=== PATIENT | male | born 1965 | race Caucasian/White ===

== ENCOUNTER 2019-03-23 14:13 | Emergency (ER) | payer BC ==
[2019-03-23] MEDS ORDERED: Ketorolac 30 MG/ML SDV IVPUSH ONE (14:27)
[2019-03-23] MEDS ORDERED: Ondansetron 4 MG/2 ML SDV IVPUSH ONE (14:28)
[2019-03-23] MEDS ORDERED: HYDROmorphone 1 MG/ML Syringe IVPUSH ONE (14:29)
[2019-03-23] MEDS ORDERED: Sodium Chloride 0.9% 1,000 ML IV SCH (14:30)
--- NOTE | 2019-03-23 14:36 | EDM.PDOC ---
ED HPI GENERAL MEDICAL PROBLEM - General Chief Complaint: Flank Pain Stated Complaint: Right-sided flank pain Time Seen by Provider: 03/23/19 14:20 Source of Information: Reports: Patient History Limitations: Reports: No Limitations - History of Present Illness INITIAL COMMENTS - FREE TEXT/NARRATIVE: Patient states about 2 hours ago had a sharp sudden onset 10 out of 10 flank pain with nausea states pain has been steady and has not alleviated all no change with movement. He denies any vomiting abdominal pain fever or chills denies any history of renal stones but has a family history of stones with father. He denies taking any medication or any medical issues he has no other complaints Duration: Hour(s): Quality: Reports: Stabbing Severity: Severe Improves with: Reports: None Worsens with: Reports: None Associated Symptoms: Reports: Nausea/Vomiting Right Flank Pain Score (Numeric/FACES): 1 - Related Data Allergies Allergy/AdvReac Type Severity Reaction Status Date / Time No Known Allergies Allergy Verified 03/23/19 15:22 Home Meds: Home Meds . [No Known Home Meds] 03/23/19 [History] ED ROS GENERAL - Review of Systems Review Of Systems: See Below Constitutional: Reports: No Symptoms. Denies: Fever, Chills, Malaise, Weakness HEENT: Reports: No Symptoms Respiratory: Reports: No Symptoms Cardiovascular: Reports: No Symptoms Endocrine: Reports: No Symptoms. Denies: Fatigue, Polydypsia, Polyuria GI/Abdominal: Reports: Nausea. Denies: Abdominal Pain, Vomiting : Reports: Flank Pain. Denies: Discharge, Dysuria, Frequency, Pain, Urgency Musculoskeletal: Reports: No Symptoms Skin: Reports: No Symptoms Neurological: Reports: No Symptoms Psychiatric: Reports: No Symptoms Hematologic/Lymphatic: Reports: No Symptoms Immunologic: Reports: No Symptoms ED EXAM, RENAL/ - Physical Exam Exam: See Below Exam Limited By: No Limitations General Appearance: Alert, WD/WN, No Apparent Distress Ears: Normal External Exam, Normal Canal Nose: Normal Inspection, Normal Mucosa Throat/Mouth: Normal Inspection, Normal Lips, Normal Teeth, Normal Gums, Normal Oropharynx, Normal Voice, No Airway Compromise Neck: Normal Inspection, Full Range of Motion Respiratory/Chest: No Respiratory Distress, No Accessory Muscle Use Cardiovascular: Regular Rate, Rhythm, No Edema, No Gallop, No JVD, No Murmur, No Rub GI/Abdominal: Normal Bowel Sounds, Soft, Non-Tender, No Organomegaly, No Distention Back Exam: Normal Inspection, Full Range of Motion. No: CVA Tenderness (L), CVA Tenderness (R) Extremities: Normal Inspection, Normal Range of Motion, Non-Tender, No Pedal Edema, Normal Capillary Refill Neurological: Alert, Oriented, CN II-XII Intact, Normal Cognition, Normal Gait Psychiatric: Normal Affect, Normal Mood Skin Exam: Warm, Intact, Normal Color, No Rash Course - Vital Signs Text/Narrative:: BMP UA ordered CT abdomen and pelvis noncontrast for renal protocol was ordered 30 mg Toradol IV Zofran formula grams IV Dilaudid 0.5 mg IV ordered if no alleviation with Toradol CT scan 2.5 distal right ureteral calculus mild right hydronephrosis small nonobstructing calculi in both kidneys BMP within normal limits UA positive blood positive protein Patient educated on signs symptoms began increase fluids take medicines follow- up primary care provider/urology understands given verbal understanding Patient given a prescription for Lortab 08/23/24 one by mouth every 4-6 hours #11 Zofran 4 mg ODT 1 by mouth every 4-6 hours #30 Flomax 0.4 mg 1 by mouth every morning #16 Last Recorded V/S: Last Vital Signs Temp 36.6 C 03/23/19 14:20 Pulse 62 03/23/19 14:20 Resp 16 03/23/19 14:20 BP 147/100 H 03/23/19 14:20 Pulse Ox 96 03/23/19 14:20 - Orders/Labs/Meds Labs: Laboratory Tests 03/23/19 03/23/19 Range/Units 14:20 14:42 Sodium 143 (136-145) mmol/L Potassium 4.4 (3.5-5.1) mmol/L Chloride 105 (98-107) mmol/L Carbon Dioxide 25 (21-32) mmol/L Anion Gap 17.4 (10-20) mmol/L BUN 15 (7-18) mg/dL Creatinine 1.2 (0.70-1.30) mg/dL Est Cr Clr Drug Dosing TNP Estimated GFR (MDRD) > 60 Glucose 116 H (74-106) mg/dL Calcium 9.0 (8.5-10.1) mg/dL Urine Color Ebony H (YELLOW) Urine Appearance Turbid H (CLEAR) Urine pH 6.5 (5.0-8.0) Ur Specific [place] 1.025 Urine Protein 30 H (NEGATIVE) mg/dL Urine Glucose (UA) Negative (NEGATIVE) mg/dL Urine Ketones Negative (NEGATIVE) mg/dL Urine Occult Blood Large H (NEGATIVE) Urine Nitrite Negative (NEGATIVE) Urine Bilirubin Small H (NEGATIVE) Urine Urobilinogen 1.0 (0.2) EU/dL Ur Leukocyte Esterase Negative (NEGATIVE) Meds: Medications Discontinued Medications Generic Name Dose Route Start Last Admin Trade Name Freq PRN Reason Stop Dose Admin Hydrocodone Bitart/Acetaminophen 2 packet 03/23/19 15:26 03/23/19 15:34 Take Home: Acetam/Hydrocodon 325-5 Mg, 5 Pack PO 03/23/19 15:27 2 packet ONETIME ONE Administration Hydromorphone HCl 0.5 mg 03/23/19 14:29 03/23/19 15:29 Dilaudid IVPUSH 03/23/19 14:30 0.5 mg ONETIME ONE Administration Sodium Chloride 1,000 mls @ 999 mls/hr 03/23/19 14:30 03/23/19 14:36 Normal Saline IV 999 mls/hr ASDIRECTED JOSÉ LUIS Administration Ketorolac Tromethamine 30 mg 03/23/19 14:27 03/23/19 14:31 Toradol IVPUSH 03/23/19 14:28 30 mg ONETIME ONE Administration Ondansetron HCl 4 mg 03/23/19 14:28 03/23/19 14:36 Zofran IVPUSH 03/23/19 14:29 4 mg ONETIME ONE Administration Promethazine HCl 2 packet 03/23/19 15:26 03/23/19 15:35 Take Home: Promethazine 25 Mg, 4 Tab Pack PO 03/23/19 15:27 2 packet ONETIME ONE Administration Tamsulosin HCl 0.4 mg 03/24/19 08:00 03/23/19 15:38 Flomax PO 0.4 mg DAILY JOSÉ LUIS Administration Tamsulosin HCl Confirm 03/23/19 15:43 Flomax Administered 03/23/19 15:44 Dose 0.4 mg .ROUTE .STK-MED ONE Departure - Departure Time of Disposition: 15:45 Disposition: Home, Self-Care 01 Condition: Good Clinical Impression: Renal stone - Discharge Information *PRESCRIPTION DRUG MONITORING PROGRAM REVIEWED*: No *COPY OF PRESCRIPTION DRUG MONITORING REPORT IN PATIENT IRA: No Instructions: Renal Colic, [id number] Referrals: PCP,None [Primary Care Provider] - Forms: ED Department Discharge Additional Instructions: drink plenty of water half a gallon each day Take medicine as directed and Lortab 08/23/24 one by mouth every 4-6 hours may increase to 2 every 4-6 hours as needed if not tolerated by pain control Phenergan 25 mg 1 by mouth every 4-6 hours as needed for nausea vomiting Follow-up with her primary care provider in the next 24 hours and for urology consult if needed Return to the emergency room if anything changes or gets worse such as fever increased pain nausea vomiting cannot urinate
[2019-03-23 15:01] LABS: CHLORIDE,CL 105 mmol/L (98-107); SODIUM,NA 143 mmol/L (136-145)
[2019-03-23 15:02] LABS: ANION GAP 17.4 mmol/L (10-20)
--- NOTE | 2019-03-23 15:19 | CT ---
[id number] CT/CT Abdomen Pelvis WO IV EXAM: ABDOMEN AND PELVIS CT WITHOUT CONTRAST INDICATION: FLANK PAIN, RT SIDE COMPARISON: None. DISCUSSION: A 2.5 distal right ureteral calculus results in mild right hydroureteronephrosis. There are a few other tiny scattered nonobstructing calculi within the right kidney. Scattered nonobstructing left intrarenal calculi measuring up to 5 mm in diameter. No ureteral calculus or left-sided collecting system dilation. A mild thick-walled appearance of the urinary bladder is likely from incomplete distention. Moderate fatty infiltration of the liver. Multiple calcified gallstones within the gallbladder without CT evidence of acute cholecystitis. Scattered colonic diverticula without evidence of diverticulitis. Small fat-containing bilateral inguinal hernias. Mild nonspecific bilateral inguinal adenopathy. Calcified granuloma left lung base. Unenhanced images of the pancreas, spleen, adrenal glands, and small bowel are unremarkable. Grade 1 L3-L4 spondylolisthesis relating to pars defects. Degenerative disc disease L3-L4 through L5-S1. IMPRESSION: 1. A 2.5 distal right ureteral calculus results in mild right hydroureteronephrosis. There are other small nonobstructing calculi in both kidneys. Karthikeyan Devlin MD 03/23/19 [id number] Thank you for allowing us to participate in the care of your patient.
[2019-03-23] MEDS ORDERED: Take Home: Acetaminophen/HYDROcodone 325-5 MG, 5 Tab Pack PO ONE (15:26)
[2019-03-23] MEDS ORDERED: Take Home: Promethazine 25 MG, 4 Tab Pack PO ONE (15:26)
[2019-03-23] MEDS ORDERED: Tamsulosin 0.4 MG Cap.ER ONE (15:43)
[2019-03-24] MEDS ORDERED: Tamsulosin 0.4 MG Cap.ER PO SCH (08:00)
== END 2019-03-23 16:20 | disposition home or self-care (01) ==
LOC: VM.ED 14:13
DX: N13.2 Hydronephrosis with renal and ureteral calculous obstruction (principal)
CPT/HCPCS: 36415; 74176; 80048; 81003; 96361; 96374; 96375; 99284; A9270; J1170; J1885; J2405; J7030